=== PATIENT | male | born 1935 | race Caucasian/White ===

== ENCOUNTER 2017-04-19 14:01 | Emergency (ER) | payer MEDICARE, BC ==
[~2017-04-19] VITALS: Ht 172.7 cm; Wt 61.2 kg
[~2017-04-19 14:01] MED LIST: ASPI-618 PO; LOTENSIN PO; SIMV40TA2 PO
[2017-04-19] MEDS ORDERED: SIMV40TA5 PO (14:15)
[2017-04-19] MEDS ORDERED: BENA20TA78 PO (14:15)
--- NOTE | 2017-04-19 14:43 | NUR ---
PT IS IN ROOM #2B. DR LANGLEY EVALUATED THE PT.
[2017-04-19] MEDS ORDERED: IV NORMAL SALINE 1000 ML BAG IV ONE (15:15)
[2017-04-19 15:30] LABS: *BILIRUBIN,URIN NEGATIVE (NEGATIVE); *BLOOD, URINE Trace-lysed (NEGATIVE); *CLARITY,URINE CLEAR (CLEAR); *COLOR,URINE YELLOW (YELLOW); *KETONES,URINE NEGATIVE (NEGATIVE); *PROTEIN,URINE NEGATIVE (NEGATIVE); *UROBILINOGEN,URINE 0.2 E.U./dl (NORMAL); LEUKOCYTE ESTERASE ,URINE NEGATIVE (NEGATIVE); NITRITE, URINE NEGATIVE (NEGATIVE); UGLUCOSE NEGATIVE (NEGATIVE)
[2017-04-19 15:42] LABS: BACTERIA,URINE NONE SEEN /HPF (NONE SEEN); RBC,URINE 0-3 /HPF (0-3); SQUAMOUS EPITHELIAL CELL,UR FEW /HPF (NONE SEEN); WBC,URINE 0-3 /HPF (0-3)
[2017-04-19] MEDS ORDERED: ONDANSETRON 4 MG/2 ML VIAL IV ONE (15:45)
[2017-04-19 15:54] LABS: BASOPHILS % (AUTO) 0.7 % (0.0-2.0); EOSINOPHILS % (AUTO) 0.6 % (0.0-7.0); HEMATOCRIT 40.2 % (40-50); HEMOGLOBIN 13.4 G/DL (14.0-18.0); LYMPHOCYTES # (AUTO) 1.6 K/UL (0.8-4.8); LYMPHOCYTES % (AUTO) 26.2 % (20.5-51.5); MEAN CORPUSCULAR HEMOGLOBIN 32.8 UUG (27.0-31.0); MEAN CORPUSCULAR HGB CONC 33 g/dL (32.0-37.0); MEAN CORPUSCULAR VOLUME 98.8 FL (82.0-92.0); MONOCYTES # (AUTO) 0.4 K/UL (0.1-1.30); MONOCYTES % (AUTO) 6.3 % (0.0-11.0); NEUTROPHILS # (AUTO) 4.2 K/UL (1.8-8.9); NEUTROPHILS % (AUTO) 66.2 % (38.5-71.5); PLATELET COUNT (AUTO) 225 K/UL (150-450); RED BLOOD CELL COUNT(AUTO) 4.07 MIL/UL (4.7-6.1); WHITE BLOOD COUNT (AUTO) 6.2 K/UL (4.0-11.2)
[2017-04-19 15:59] LABS: CARBON DIOXIDE 29 mmol/L (21-32); CHLORIDE 104 mmol/L (98-107); GLUCOSE 107 mg/dL (74-106); UREA NITROGEN, BLOOD 12 mg/dL (7-18)
[2017-04-19 16:10] LABS: ALANINE AMINOTRANSFERASE 20 U/L (16-63); ALKALINE PHOSPHATASE 64 U/L (50-136); ASPARTATE AMINOTRANSFERASE 22 U/L (15-37); BILIRUBIN,DIRECT 0.2 mg/dL (0.0-0.2); BILIRUBIN,TOTAL 0.6 mg/dL (0.2-1.0); LIPASE 139 U/L (73-393)
--- NOTE | 2017-04-19 17:52 | NUR ---
PT WAS D/C TO HOME. D/C INSTRUCTIONS GIVEN TO THE PT. PT DENIES NAUSEA. PT DENIES PAIN. GAIT IS STABLE.
[2017-04-19 17:53] VITALS: BP 134/81
== END 2017-04-19 17:54 | disposition home or self-care (01) ==
LOC: ER 14:01
DX: R11.0 Nausea (principal); Z88.2 Allergy status to sulfonamides; Z79.82 Long term (current) use of aspirin; I25.10 Atherosclerotic heart disease of native coronary artery without angina pectoris; E78.5 Hyperlipidemia, unspecified
CPT/HCPCS: 36415; 70030-TC; 83690; 85025; 85730; 93005; A4663; J2405; J7030

== ENCOUNTER 2018-04-11 13:13 | Emergency (ER) | payer MEDICARE, BC ==
[~2018-04-11] VITALS: Ht 175.3 cm; Wt 59.0 kg
[~2018-04-11 13:13] MED LIST changes: +BENA20TA78 PO; -LOTENSIN PO; +SIMV40TA5 PO
--- NOTE | 2018-04-11 13:20 | NUR ---
RECEIVED PT CO DIARRHEA, STATED MORE THEN 8 TIMES YESTERDAY. CONSCIOUS ORIENTED X 3. LYING ON BED COMFORTABLY.
[2018-04-11] MEDS ORDERED: ONDA4TAB8 SL (13:24)
--- NOTE | 2018-04-11 13:30 | NUR ---
IV LINE INSERTED ON LT AC G 20, LABS TAKEN AND SENT TO THE LAB. IVF N/S HOOKED UP.
[2018-04-11] MEDS ORDERED: IV NORMAL SALINE 1000 ML BAG IV ONE (13:45)
[2018-04-11 13:55] LABS: BASOPHILS % (AUTO) 0.6 % (0.0-2.0); EOSINOPHILS # (AUTO) 0.1 K/uL (0.0-0.7); EOSINOPHILS % (AUTO) 0.9 % (0.0-7.0); HEMATOCRIT 41.2 % (36.7-47.1); HEMOGLOBIN 14.2 g/dL (12.5-16.3); LYMPHOCYTES # (AUTO) 1.5 K/uL (20.0-40.0); LYMPHOCYTES % (AUTO) 21.6 % (20.5-51.5); MEAN CORPUSCULAR HEMOGLOBIN 34.3 uug (23.8-33.4); MEAN CORPUSCULAR HGB CONC 35 g/dL (32.5-36.3); MEAN CORPUSCULAR VOLUME 99.3 fL (73.0-96.2); MONOCYTES # (AUTO) 0.3 K/uL (2.0-10.0); MONOCYTES % (AUTO) 4.3 % (0.0-11.0); NEUTROPHILS # (AUTO) 5.2 K/uL (1.8-8.9); NEUTROPHILS % (AUTO) 72.6 % (38.5-71.5); PLATELET COUNT (AUTO) 202 K/uL (152-348); RED BLOOD CELL COUNT(AUTO) 4.15 MIL/uL (4.06-5.63); WHITE BLOOD COUNT (AUTO) 7.1 K/uL (3.6-10.2)
[2018-04-11 14:00] LABS: CARBON DIOXIDE 26 mmol/L (21-32); CHLORIDE 103 mmol/L (98-107); CREATININE 1.1 mg/dL (0.6-1.3); GLUCOSE 95 mg/dL (74-106); UREA NITROGEN, BLOOD 12 mg/dL (7-18)
[2018-04-11 14:06] LABS: ALANINE AMINOTRANSFERASE 22 U/L (16-63); ALKALINE PHOSPHATASE 74 U/L (50-136); ASPARTATE AMINOTRANSFERASE 20 U/L (15-37); BILIRUBIN,DIRECT 0.2 mg/dL (0.0-0.2); LIPASE 132 U/L (73-393); TOTAL PROTEIN, SERUM 7.6 g/dL (6.4-8.2)
[2018-04-11] MEDS ORDERED: ONDANSETRON 4 MG/2 ML VIAL ONE (14:12)
--- NOTE | 2018-04-11 14:14 | NUR ---
PT CO NAUSEA DR VERDUZCO INFORMED ZOFRA IV GIVEN.
[2018-04-11] MEDS ORDERED: ONDANSETRON IV *ER 4 MG/2 ML VIAL IV ONE (14:15)
--- NOTE | 2018-04-11 14:40 | NUR ---
URINE SAMPLE TAKEN AND SENT TO LAB
[2018-04-11 14:47] LABS: *BILIRUBIN,URIN NEGATIVE (NEGATIVE); *BLOOD, URINE NEGATIVE (NEGATIVE); *CLARITY,URINE CLEAR (CLEAR); *COLOR,URINE LIGHT YELLOW (YELLOW); *KETONES,URINE NEGATIVE (NEGATIVE); *PROTEIN,URINE NEGATIVE (NEGATIVE); LEUKOCYTE ESTERASE ,URINE NEGATIVE (NEGATIVE); NITRITE, URINE NEGATIVE (NEGATIVE); UGLUCOSE NEGATIVE (NEGATIVE)
[2018-04-11 14:50] LABS: MUCUS,URINE FEW /LPF (0-FEW); WBC,URINE 0-3 /HPF (0-3)
--- NOTE | 2018-04-11 15:13 | NUR ---
Patient discharged to home in stable conditon.IV LINE D/C'D, Written and verbal after care instructions given. Patient verbalizes understanding of instructions.
== END 2018-04-11 15:19 | disposition home or self-care (01) ==
LOC: ER 13:14
DX: R19.7 Diarrhea, unspecified (principal); I25.10 Atherosclerotic heart disease of native coronary artery without angina pectoris; E78.5 Hyperlipidemia, unspecified; Z88.2 Allergy status to sulfonamides; Z79.82 Long term (current) use of aspirin; Z79.899 Other long term (current) drug therapy
CPT/HCPCS: 36415; 80048; 80076; 81001; 83690; 85025; 96361; 96374; 99284; A4663; J2405

== ENCOUNTER 2022-03-05 19:25 | Emergency (ER) | payer MEDICARE, BC ==
[~2022-03-05] VITALS: Ht 172.7 cm; Wt 56.7 kg
[~2022-03-05 19:25] MED LIST changes: +ONDA4TAB8 SL; -SIMV40TA5 PO
--- NOTE | 2022-03-05 19:46 | NUR ---
pt in room 2a bib states having hiccups all day and has a heart condition.
--- NOTE | 2022-03-05 20:35 | NUR ---
Dr. Plaza at bedside for MSE.
[2022-03-05] MEDS ORDERED: chlorproMAZINE 50 MG/2 ML AMPUL ONE (20:42)
[2022-03-05] MEDS ORDERED: chlorproMAZINE 50 MG/2 ML AMPUL IV ONE (20:45)
[2022-03-05] MEDS ORDERED: CHLO25TA13 PO (21:58)
--- NOTE | 2022-03-05 22:07 | NUR ---
Patient discharged to home in stable condition. Written and verbal after care instructions given. Patient verbalizes understanding of instructions. Stressed follow up or return to ER for worsening s/s.
[2022-03-05 22:22] VITALS: BP 130/77
== END 2022-03-05 22:23 | disposition home or self-care (01) ==
LOC: ER 19:27
DX: R06.6 Hiccough (principal); E78.5 Hyperlipidemia, unspecified; I25.10 Atherosclerotic heart disease of native coronary artery without angina pectoris; Z88.2 Allergy status to sulfonamides; Z87.19 Personal history of other diseases of the digestive system; Z79.01 Long term (current) use of anticoagulants; Z79.899 Other long term (current) drug therapy
CPT/HCPCS: 96374; 99284; J3230; A4663